=== PATIENT | male | born 1970 | race Caucasian/White ===

== ENCOUNTER → 2023-07-21 | Outpatient (CLI) | payer BC ==
[2023-07-21 12:10] LABS: BASO # 0.1 10^3/uL (0.0-0.2); EOS # 0.1 10^3/uL (0.0-0.5); EOS % 2.1 % (0.0-3.0); HEMATOCRIT 46.5 % (42.0-52.0); HEMOGLOBIN 15.8 g/dl (13.5-17.5); LYMPH # 1.6 10^3/uL (1.5-5.0); LYMPH % 31.7 % (24.0-44.0); MEAN CORPUSCULAR HEMOGLOBIN 31.3 pg (27.0-33.0); MEAN CORPUSCULAR VOLUME 92.3 fl (80.0-96.0); MONO # 0.9 10^3/uL (0.0-0.8); MONO % 16.8 % (2.0-8.0); NEUTROPHILS # 2.5 10^3/uL (1.5-8.5); NEUTROPHILS % 48.2 % (36.0-66.0); PLATELET COUNT, AUTOMATED 252 10^3/uL (150-450); RED BLOOD COUNT 5.04 10^6/uL (4.30-6.10); WHITE BLOOD COUNT 5.2 10^3/uL (4.0-10.0)
[2023-07-21 15:16] LABS: ALKALINE PHOSPHATASE 67 U/L (46-116); ALT/SGPT 41 U/L (7.0-40); AST/SGOT 19 U/L (<34); BILIRUBIN,TOTAL 0.4 MG/DL (0.3-1.2); BLOOD UREA NITROGEN 12 MG/DL (9-23); CALCIUM LEVEL 8.4 MG/DL (8.5-10.1); CARBON DIOXIDE LEVEL 26 MMOL/L (20-31); CHLORIDE LEVEL 106 MMOL/L (98-107); CHOLESTEROL LEVEL 238 MG/DL (<200); CREATININE FOR GFR 0.85 MG/DL (0.70-1.30); GLOMERULAR FILTRATION RATE > 60.0 (>56); GLUCOSE, FASTING 87 MG/DL (60-100); POTASSIUM SERUM 4.6 MMOL/L (3.5-5.1); SODIUM LEVEL 137 MMOL/L (136-145); TRIGLYCERIDES LEVEL 120 MG/DL (<150)
[2023-07-21 15:17] LABS: ALBUMIN 3.7 G/DL (3.2-5.2); PROSTATIC SPECIFIC AG MONITOR 1.78 NG/ML (< 4.00); TOTAL 25(OH) VITAMIN D 11.3 NG/ML (20.0-100.0); TOTAL PROTEIN 6.4 G/DL (5.7-8.2)
[2023-07-21 16:39] LABS: CHOLESTEROL RISK RATIO 5.63 (<5); HDL CHOLESTEROL 42.2 MG/DL (>40); LDL CHOLESTEROL 171.8 MG/DL (<100); NON-HDL-C 195.8 MG/DL
== END ==
LOC: M LAB 11:19
PROVIDERS: ATTEND Pediatrics
DX: J02.9 Acute pharyngitis, unspecified (principal); F10.10 Alcohol abuse, uncomplicated; Z12.5 Encounter for screening for malignant neoplasm of prostate; E55.9 Vitamin D deficiency, unspecified; Z13.220 Encounter for screening for lipoid disorders

== ENCOUNTER 2024-02-27 17:42 | Emergency (ER) | payer SELFPAY ==
[~2024-02-27] VITALS: Ht 177.8 cm; Wt 82.0 kg
[2024-02-27 17:42] VITALS: BP 120/95; TEMP 98.9; O2SAT 97
[2024-02-27] MEDS ORDERED: SENN-193 (17:53)
[2024-02-27] MEDS ORDERED: POLY510P14 (17:53)
[2024-02-27 19:33] LABS: BASO # 0.1 10^3/uL (0.0-0.2); EOS # 0.3 10^3/uL (0.0-0.5); EOS % 2.7 % (0.0-3.0); HEMOGLOBIN 15.7 g/dl (13.5-17.5); LYMPH # 3.7 10^3/uL (1.5-5.0); LYMPH % 40.4 % (24.0-44.0); MEAN CORPUSCULAR HEMOGLOBIN 31.4 pg (27.0-33.0); MEAN CORPUSCULAR HGB CONC 34.1 g/dl (32.0-36.5); MONO # 0.9 10^3/uL (0.0-0.8); MONO % 9.5 % (2.0-8.0); NEUTROPHILS # 4.2 10^3/uL (1.5-8.5); PLATELET COUNT, AUTOMATED 289 10^3/uL (150-450); WHITE BLOOD COUNT 9.1 10^3/uL (4.0-10.0)
[2024-02-27 20:02] LABS: LIPASE 31 U/L (12-53)
[2024-02-27 20:03] LABS: ALBUMIN 4.1 G/DL (3.2-5.2); ALKALINE PHOSPHATASE 63 U/L (46-116); ALT/SGPT 38 U/L (7.0-40); AST/SGOT 12 U/L (<34); BILIRUBIN,DIRECT 0.1 MG/DL (<0.4); BILIRUBIN,TOTAL 0.5 MG/DL (0.3-1.2); BLOOD UREA NITROGEN 12 MG/DL (9-23); CALCIUM LEVEL 9.1 MG/DL (8.5-10.1); CARBON DIOXIDE LEVEL 27 MMOL/L (20-31); CHLORIDE LEVEL 108 MMOL/L (98-107); CREATININE FOR GFR 0.81 MG/DL (0.70-1.30); GLOMERULAR FILTRATION RATE > 60.0 (>56); GLUCOSE, FASTING 78 MG/DL (60-100); POTASSIUM SERUM 4.2 MMOL/L (3.5-5.1); SODIUM LEVEL 140 MMOL/L (136-145); TOTAL PROTEIN 6.6 G/DL (5.7-8.2)
== END 2024-02-28 01:36 | disposition left against medical advice (07) ==
LOC: M ED 17:42
DX: Z53.21 Procedure and treatment not carried out due to patient leaving prior to being seen by health care provider (principal)

== ENCOUNTER → 2024-06-21 | Outpatient (CLI) | payer BC ==
[~2024-06-21] MED LIST: POLY510P14; SENN-193
== END ==
LOC: M PLARAD 08:18
PROVIDERS: ATTEND Nurse Practitioner Family
DX: R91.1 Solitary pulmonary nodule (principal)
CPT/HCPCS: 78815; A9552

== ENCOUNTER 2024-11-04 13:48 | Emergency (ER) | payer BC, MEDICAID, OTHER ==
[~2024-11-04] VITALS: Ht 177.8 cm; Wt 89.1 kg
[2024-11-04] MEDS: ASPIRIN 81MG CHEW TABLET PO ONE (14:50)
[2024-11-04 14:51] LABS: VENOUS BASE EXCESS -1.1 (-2.0-2.0); VENOUS HCO3 24.1 MMOL/L (23.0-27.0); VENOUS O2 SATURATION 76.6 % (60.0-80.0); VENOUS PARTIAL PRESSURE O2 37.5 mmHg (30.0-50.0); VENOUS PH 7.377 UNITS (7.330-7.430); VENOUS TOTAL CO2 25.4 MMOL/L (24.0-28.0)
[2024-11-04 14:52] LABS: BASO # 0.1 10^3/uL (0.0-0.2); BASO % 0.8 % (0.0-1.0); EOS % 0.2 % (0.0-3.0); HEMATOCRIT 48.4 % (42.0-52.0); HEMOGLOBIN 16.7 g/dl (13.5-17.5); LYMPH # 1.2 10^3/uL (1.5-5.0); MEAN CORPUSCULAR HGB CONC 34.5 g/dl (32.0-36.5); MEAN CORPUSCULAR VOLUME 89.8 fl (80.0-96.0); MONO # 0.9 10^3/uL (0.0-0.8); MONO % 15.2 % (2.0-8.0); NEUTROPHILS # 3.9 10^3/uL (1.5-8.5); NEUTROPHILS % 64.1 % (36.0-66.0); PLATELET COUNT, AUTOMATED 199 10^3/uL (150-450); RED BLOOD COUNT 5.39 10^6/uL (4.30-6.10); WHITE BLOOD COUNT 6.1 10^3/uL (4.0-10.0)
[2024-11-04 15:05] LABS: INR 0.93; PARTIAL THROMBOPLASTIN TIME 29.1 SECONDS (24.8-34.2); PROTHROMBIN TIME 12.8 SECONDS (12.5-14.5)
[2024-11-04 15:19] LABS: ALBUMIN 3.8 G/DL (3.2-5.2); ALKALINE PHOSPHATASE 84 U/L (40-129); ALT/SGPT 139 U/L (7.0-40); AST/SGOT 80 U/L (<34); BILIRUBIN,DIRECT 0.2 MG/DL (<0.4); BILIRUBIN,TOTAL 0.4 MG/DL (0.3-1.2); BLOOD UREA NITROGEN 12 MG/DL (9-23); CALCIUM LEVEL 8.6 MG/DL (8.5-10.1); CARBON DIOXIDE LEVEL 25 MMOL/L (20-31); CHLORIDE LEVEL 101 MMOL/L (98-107); CK-MB VALUE MASS 1.2 NG/ML (<3.6); CREATININE FOR GFR 0.94 MG/DL (0.70-1.30); GLOMERULAR FILTRATION RATE > 60.0 (>56); GLUCOSE, FASTING 86 MG/DL (60-100); POTASSIUM SERUM 3.9 MMOL/L (3.5-5.1); SODIUM LEVEL 134 MMOL/L (136-145); TOTAL PROTEIN 7.2 G/DL (5.7-8.2)
[2024-11-04 15:20] LABS: FREE T4 0.98 NG/DL (0.89-1.76)
[2024-11-04 15:21] LABS: THYROID STIMULATING HORMONE 1.679 uIU/ML (0.55-4.78)
[2024-11-04 15:32] LABS: CPK CREATINE PHOSPHOKINASE 436 U/L (46-171); MB/CK RELATIVE INDEX 0.27 (< OR =4)
[2024-11-04] MEDS ORDERED: ISOVUE-370 76% 100ML VIAL As Ordered ONE (15:45)
[2024-11-04 16:22] LABS: CK-MB VALUE MASS 1.3 NG/ML (<3.6)
[2024-11-04 16:24] LABS: CPK CREATINE PHOSPHOKINASE 415 U/L (46-171); MB/CK RELATIVE INDEX 0.31 (< OR =4)
[2024-11-04 16:31] VITALS: O2SAT 95
[2024-11-04 16:45] VITALS: TEMP 100.7
[2024-11-04] MEDS: OSELTAMIVIR PHOSPHATE 75 MG CAP PO ONE (16:55)
[2024-11-04] MEDS: NITROGLYCERIN 0.4MG SUBL TABLET SL PRN (16:57)
[2024-11-04] MEDS: ACETAMINOPHEN 325 MG TAB PO ONE (17:20)
[2024-11-04] MEDS: HEPARIN SOD (PORCINE) 5000UNITS/ML 1ML VIAL/SYRINGE IV ONE (17:23)
[2024-11-04] MEDS: HEPARIN DRIP 25,000 UNITS in IV 1 EA IV SCH (17:25)
[2024-11-04 17:45] VITALS: BP 116/59; O2SAT 94
== END 2024-11-04 18:04 | disposition short-term general hospital (02) ==
LOC: M ED 13:48
DX: I20.0 Unstable angina (principal); J09.X2 Influenza due to identified novel influenza A virus with other respiratory manifestations; J43.9 Emphysema, unspecified; F17.210 Nicotine dependence, cigarettes, uncomplicated
CPT/HCPCS: 71045; 71275; 80048; 80076; 82550; 82553; 82803; 83880; 84439; 84443; 84484; 85025; 85610; 85730; 87486; 87581; 87633; 87798; 93005; 93041; 94760; 96374; 96375; 99285; Q9967

== ENCOUNTER → 2024-11-30 | Outpatient (CLI) | payer OTHER | LOC: M RAD 09:41 | PROVIDERS: ATTEND Nurse Practitioner Family | DX: R10.9 Unspecified abdominal pain (principal) ==